=== PATIENT | female | born 1990 | race Caucasian/White ===

== ENCOUNTER 2020-10-22 02:41 | Emergency (ER) | payer BC ==
[~2020-10-22] VITALS: Ht 160 cm; Wt 88.5 kg
[2020-10-22 02:45] VITALS: BP_SYST 139
[2020-10-22] MEDS ORDERED: NACL 0.9% 1,000 ML IV ONE (03:00)
[2020-10-22 03:19] LABS: BILIRUBIN,URINE NEGATIVE (NEGATIVE); BLOOD, URINE 3+ (NEGATIVE); CLARITY/URINE CLEAR (CLEAR); COLOR,URINE YELLOW (YELLOW); GLUCOSE,URINE NEGATIVE (NEGATIVE); KETONES,URINE NEGATIVE (NEGATIVE); LEUKOCYTE ESTERASE ,URINE NEGATIVE (NEGATIVE); NITRITE, URINE NEGATIVE (NEGATIVE); PROTEIN URINE NEGATIVE (NEGATIVE); UROBILINOGEN,URINE 0.2 (0.2-1.0)
[2020-10-22 03:21] LABS: BASOPHILS # (AUTO) 0.1 K/uL (0.0-0.2); BASOPHILS % (AUTO) 0.7 % (0.0-2.0); EOSINOPHILS # (AUTO) 0.2 K/uL (0.0-0.4); EOSINOPHILS % (AUTO) 1.5 % (0.0-4.0); HEMATOCRIT 43.7 % (36-48); HEMOGLOBIN 14.4 g/dL (12.0-16.0); LYMPHOCYTES % (AUTO) 34.5 % (20.5-51.5); MEAN CORPUSCULAR HEMOGLOBIN 29 pg (27-31); MEAN CORPUSCULAR HGB CONC 33 % (32-36); MEAN CORPUSCULAR VOLUME 87 fL (79.0-98.0); MONOCYTES # (AUTO) 0.5 K/uL (0.0-1.0); MONOCYTES % (AUTO) 4.2 % (1.7-9.3); NEUTROPHILS # (AUTO) 6.8 K/uL (1.8-7.7); NEUTROPHILS % (AUTO) 59.1 % (40.0-70.0); PLATELET COUNT (AUTO) 263 K/uL (130-430); RED BLOOD CELL COUNT(AUTO) 5.02 MIL/uL (4.2-6.2); RED CELL DISTRIBUTION WIDTH 14.1 % (9.0-15.0); WHITE BLOOD COUNT (AUTO) 11.5 K/uL (4.8-10.8)
[2020-10-22 03:23] LABS: RBC,URINE 50-80 /HPF (0-3); WBC,URINE 0-3 /HPF (0-3)
[2020-10-22 03:24] LABS: BACTERIA,URINE FEW /HPF (None Seen)
[2020-10-22 03:41] LABS: CALCIUM 8.9 mg/dL (8.4-11.0); CREATININE 0.86 mg/dL (0.55-1.30)
[2020-10-22 03:44] LABS: PROTHROMBIN TIME 10.4 SECS (9.5-12.5)
[2020-10-22 03:56] LABS: ALBUMIN 3.6 g/dL (3.4-4.8); TOTAL BILIRUBIN 0.3 mg/dL (0.0-1.0)
[2020-10-22] MEDS ORDERED: NAPR-688 PO (04:39)
[2020-10-22 04:49] VITALS: BP_SYST 139
== END 2020-10-22 04:49 | disposition home or self-care (01) ==
LOC: SED 02:41
DX: N93.9 Abnormal uterine and vaginal bleeding, unspecified (principal)
CPT/HCPCS: 36415; 80048; 80053; 81000; 81025; 84702; 85025; 85610; 85730; 86886; 86900; 86901; 96360; 99283; J7030